=== PATIENT | male | born 1970 | race Caucasian/White ===

== ENCOUNTER 2024-04-02 01:17 | Emergency (ER) | payer OTHER, SELFPAY ==
[2024-04-02 01:20] VITALS: BP 129/87; PULSE 93; RESP 18; TEMP 36.6; O2SAT 97; BMI 29.0
--- NOTE | 2024-04-02 01:32 | ED_ITS ---
HPI - General Adult General Chief complaint: Wound/Laceration Stated complaint: right thumb burn Time Seen by Provider: 04/02/24 01:32 Source: patient Limitations: no limitations History of Present Illness HPI narrative: 53-year-old male presents for evaluation of a burn to his right hand. Patient states he was moving a pot of hot oil that accidentally spilled over onto the dorsum of his right hand and thumb. Patient states this occurred at approximately 12:30 a.m. He applied cold water and ice. his tetanus is up-to-date. Denies any paresthesias or paralysis. He is right-hand dominant. Related Data Previous Rx's ?Medication ?Instructions ?Recorded silver sulfadiazine 1 % topical 1 appl topical BID #50 grams 04/02/24 cream (Silvadene) Allergies Allergy/AdvReac Type Severity Reaction Status Date / Time No Known Allergies Allergy Verified 04/02/24 01:20 Review of Systems Constitutional: Constitutional: Denies chills and Denies fever(s) Psychiatric: Psychiatric: Denies depression [facility] Past Medical History Attestation statement: The following information was validated with the patient. [facility] Narrative: Denies significant past medical history Social History Social History Advance Directives: No Advance Directives Information Provided: Yes Do you have a plan to hurt others: No Plan Physical Exam ED Vital Signs: Vital Signs - 24 hr 04/02/24 01:20 Temperature 97.8 F Pulse Rate 93 Respiratory Rate 18 Blood Pressure 129/87 Pulse Oximetry 97 Oxygen Delivery Method Room Air BMI result Body Mass Index 29.0 Const General: alert, awake and Physically active Extrem Other: health assistant is 5/5 bilaterally. Full range of motion of all digits. There is erythema to the dorsum right hand, particularly over the 1st digit and base of the thumb. It is not circumferential. Of note there is a right 1st digit some ungual hematoma that was present prior to the injury. Cap refills less than 2 seconds. Pronation and supination is intact. There is no evidence of tendon involvement. There are no vesicles. There is some slight skin sloughing range through the base of the 1st digit. Course Course Course Narrative: 1:55 a.m. Wound was cleansed, Silvadene applied, nonstick and bandaging. Patient tolerated. Reviewed all discharge instructions. No further questions at this time. Medications Administered Discontinued Medications Generic Name Dose Route Start Last Admin Trade Name Thaddeus PRN Reason Stop Dose Admin Silver Sulfadiazine 1 appl 04/02/24 01:36 04/02/24 01:57 Silver Sulfadiazine 1 % Cream 20 Gm Tube TOPICAL 04/02/24 01:37 1 appl ONCE ONE Administration Medical Decision Making Medical Decision Making MDM Narrative: 53-year-old male with a 1st and second-degree burn to the dorsum of the right hand. It is not circumferential and the patient has full range of motion. He is up-to-date on tetanus. We will clean dry and bandaged with Silvadene. Differential Diagnosis Differential Diagnoses: The differential diagnosis associated with the presentation includes Thermal burn Cellulitis Abrasion Contact dermatitis Discharge Plan Discharge Clinical Impression: Burn Patient Disposition: Home, Self-Care Instructions: Superficial Burn (ED), Second Degree Burn (ED) Additional Instructions: Dressing changes twice daily. keep the area clean and dry. Warm water and antibacterial soap. Pat dry.Apply Silvadene cream to the affected area. Tylenol or ibuprofen as directed for pain. Watch for any worsening of symptoms, severe pain, redness, streaking or any other concern return immediately to the emergency department. Follow-up with your primary care provider. Call this week to schedule a follow-up appointment. Return to the emergency department if you have any worsening of symptoms, or any concerns. Get well soon! Prescriptions: New silver sulfadiazine [Silvadene] 1 % cream 1 appl topical BID Qty: 50 0RF Rx Instructions: apply a 1.5 mm thickness Print Language: Upper Sorbian
[2024-04-02] MEDS: Silver Sulfadiazine 1 % Cream 20 GM TUBE 1 APPL TOPICAL (01:57)
[2024-04-02 02:18] VITALS: BP 129/87; PULSE 93; RESP 18; TEMP 36.6; O2SAT 97
== END 2024-04-02 02:19 | disposition home or self-care (01) ==
PROVIDERS: Emergency Provider Emergency Medicine; PCP Pediatrics
DX: T23.201A Burn of second degree of right hand, unspecified site, initial encounter (principal); X10.2XXA Contact with fats and cooking oils, initial encounter; Y93.G3 Activity, cooking and baking; Y92.009 Unspecified place in unspecified non-institutional (private) residence as the place of occurrence of the external cause; Y99.9 Unspecified external cause status
CPT/HCPCS: 16020; 99284